=== PATIENT | male | born 2000 | race Caucasian/White ===

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

== ENCOUNTER 2023-02-13 17:04 | Emergency (ER) | payer BC ==
[2023-02-13 18:45] VITALS: BP 123/80; PULSE 72; RESP 18; TEMP 99; BMI 27.4
== END 2023-02-13 18:58 | disposition home or self-care (01) ==
LOC: FER 17:04
DX: R04.2 Hemoptysis (principal); R05.1 Acute cough
CPT/HCPCS: 99282-25

== ENCOUNTER 2023-06-23 10:54 | Emergency (ER) | payer OTHER, BC ==
[2023-06-23] MEDS ORDERED: IBUPROFEN 600 MG TABLET (FP) PO ONE ×2 (11:17→11:54)
[2023-06-23 11:20] VITALS: BP 142/86; PULSE 88; RESP 18; TEMP 98.7; BMI 28.2
== END 2023-06-23 13:50 | disposition home or self-care (01) ==
LOC: FER 10:54
DX: S60.221A Contusion of right hand, initial encounter (principal); S80.11XA Contusion of right lower leg, initial encounter; S70.01XA Contusion of right hip, initial encounter; W01.0XXA Fall on same level from slipping, tripping and stumbling without subsequent striking against object, initial encounter
CPT/HCPCS: 72170-TC-FY; 73090-TC-RT-FY; 73110-TC-RT-FY; 73130-TC-RT-FY; 73590-TC-RT-FY; 99284-25